=== PATIENT | male | born 1955 | race Caucasian/White ===

== ENCOUNTER 2017-04-21 10:25 | Emergency (ER) | payer MEDICARE, MEDICAID ==
[2017-04-21 10:33] VITALS: BP 169/84
--- NOTE | 2017-04-21 11:51 | UC ---
Respiratory Complaint HPI - HPI Summary HPI Summary: 2 DAYS OF COUGH, CONGESTION, SINUS PRESSURE, ST AND ELEVATED TEMP. WENT TO PCP AT [facility] YESTERDAY AND DIAGNOSED WITH VIRAL ILNESS/ALLERGIES AND RX ZYRTEC. PT REPORTS HE FEELS WORSE TODAY. OF NOTE HE LIVES IN A HOUSE WITH SEVERAL APARTMENTS AND THE OTHER TENANTS ARE HEAVY SMOKERS AND THE SMOKE IS GETTING INTO HIS APARTMENT. - History of Current Complaint Chief Complaint: UCGeneralIllness Stated Complaint: SINUS COMPLAINT Time Seen by Provider: 04/21/17 11:47 Hx Obtained From: Patient Onset/Duration: Gradual Onset, Lasting Days, Still Present Timing: Constant Severity Initially: Moderate Severity Currently: Moderate Pain Intensity: 9 Pain Scale Used: 0-10 Numeric Character: Cough: Nonproductive Aggravating Factors: Allergens Alleviating Factors: Nothing Associated Signs And Symptoms: Positive: Fever, Chills, URI, Nasal Congestion, Sinus Discomfort - Allergies/Home Medications Allergies/Adverse Reactions: Allergies Allergy/AdvReac Type Severity Reaction Status Date / Time Cephalexin [From Keflex] Allergy Mild Nausea Verified 04/21/17 10:33 Paroxetine [From Paxil] Allergy Mild Nausea Verified 04/21/17 10:33 Home Medications: Home Medications Fexofenadine HCl [Allergy 24-Hr] 180 mg PO DAILY 04/21/17 [History Confirmed 07/30] Hydrocortisone SUPP* [Anusol Hc Supp*] [address] BID PRN 04/21/17 [History Confirmed 04/21/17] Multivitamins/Minerals TAB* [Thera M Plus TAB*] 1 tab PO DAILY 04/21/17 [ History Confirmed 04/21/17] Selegiline [Emsam] 6 mg TRANSDERM DAILY 04/21/17 [History Confirmed 04/21/17] Tadalafil [Cialis] 1 tab PO DAILY PRN 04/21/17 [History Confirmed 04/21/17] hydrOXYzine PAMOATE CAP* [Vistaril CAP*] 25 mg PO QID 04/21/17 [History Confirmed 04/21/17] PMH/Surg Hx/FS Hx/Imm Hx Endocrine History: Dyslipidemia Cardiovascular History: Hypertension Psychological History: Depression - Family History Known Family History: Positive: Hypertension - Social History Alcohol Use: None Substance Use Type: None Smoking Status (MU): Never Smoked Tobacco Review of Systems Constitutional: Fever, Chills ENT: Sore Throat, Nasal Discharge Respiratory: Cough Cardiovascular: Negative Gastrointestinal: Negative All Other Systems Reviewed And Are Negative: Yes Physical Exam Triage Information Reviewed: Yes Appearance: Well-Appearing, No Pain Distress, Well-Nourished Vital Signs: Initial Vital Signs Temp 99.4 F 04/21/17 10:29 Pulse 87 04/21/17 10:29 Resp 16 04/21/17 10:29 BP 169/84 04/21/17 10:29 Pulse Ox 97 04/21/17 10:29 Vital Signs Reviewed: Yes Eyes: Positive: Conjunctiva Clear ENT: Positive: Hearing grossly normal, Pharynx normal, TMs normal Neck: Positive: Supple, Nontender, No Lymphadenopathy Respiratory Exam: Normal Cardiovascular Exam: Normal Abdomen Description: Positive: Soft Musculoskeletal: Positive: No Edema Neurological: Positive: Alert Psychological: Positive: Age Appropriate Behavior Skin: Negative: rashes UC Diagnostic Evaluation - Laboratory O2 Sat by Pulse Oximetry: 97 Respiratory Course/Dx - Differential Dx/Diagnosis Provider Diagnoses: ACUTE URI Discharge - Discharge Plan Condition: Stable Disposition: HOME Prescriptions: Amoxicillin CAP* [Amoxicillin 500 MG CAP*] 1,000 mg PO Q12H #40 cap guaiFENesin/CODIEN 100MG-10MG* [Robitussin AC 100Mg-10Mg*] 5 - 10 ml PO Q6H PRN #150 ml MDD 40ml PRN Reason: Cough predniSONE TAB* [Deltasone TAB*] 50 mg PO DAILY #5 tab Patient Education Materials: Upper Respiratory Infection (ED) Referrals: Massimo Jean MD [Primary Care Provider] - If Needed Additional Instructions: YOUR SYMPTOMS ARE LIKELY VIRAL IN ETIOLOGY. THERE IS NOTHING ON PHYSICAL EXAM THAT REQUIRES ANTIBIOTIC TREATMENT. WILL COVER FOR ASTHMA AND ALLERGY WITH PREDNISONE. CONTINUE ZYRTEC DAILY. COUGH MEDICINE NEEDED. IF YOU ARE NOT IMPROVING OVER THE NEXT SEVERAL DAYS GO AHEAD AND FILL RX FOR ANTIBIOTIC. IF YOU START THE ANTIBIOTIC YOU MUST TAKE IT FOR THE FULL [address]OP [address] THROUGH. ACUTE UPPER RESPIRATORY INFECTION The common cold is a benign self-limited syndrome representing a group of diseases caused by members of several families of viruses. It is the most frequent acute illness in the [place] and throughout the industrialized world. The term "common cold" refers to a mild upper respiratory viral infection involving, to variable degrees, nasal congestion and discharge ( rhinorrhea), sneezing, sore throat, cough, low-grade fever, headache, and malaise. Symptomatic therapy remains the mainstay of common cold treatment. In the absence of convincing evidence of a secondary bacterial infection, antibiotics are not effective in the treatment of the common cold and should not be prescribed. Be advised that the usual course and duration of illness is up to one and a half weeks for patients with a cold, but can last slightly longer; symptoms usually persist longer in smokers. THE SMOKE IN YOUR APARTMENT IS LIKELY EXACERBATING YOUR SYMPTOMS. PLEASE CONTACT YOUR [employer] ABOUT ENFORCING SMOKING POLICIES.
== END 2017-04-21 12:20 | disposition home or self-care (01) ==
LOC: UCEAST 10:25
DX: J06.9 Acute upper respiratory infection, unspecified (principal); Z88.1 Allergy status to other antibiotic agents; Z88.8 Allergy status to other drugs, medicaments and biological substances; E78.5 Hyperlipidemia, unspecified; I10 Essential (primary) hypertension; F32.9 Major depressive disorder, single episode, unspecified
CPT/HCPCS: 99202; G0463